=== PATIENT | male | born 1950 | race African-American/Black ===

== ENCOUNTER 2023-01-18 07:24 | Emergency (ER) | payer MEDICARE ==
[~2023-01-18] VITALS: Ht 188 cm; Wt 99.8 kg
[2023-01-18 07:33] VITALS: BP 146/67
[2023-01-18 08:27] LABS: Influenza A, PCR NEGATIVE (NEGATIVE); Influenza B, PCR NEGATIVE (NEGATIVE); Resp Syncytial Virus, PCR NEGATIVE (NEGATIVE)
[2023-01-18 08:30] LABS: SARS-Cov-2 (COVID-19) PCR, MMC POSITIVE (NEGATIVE)
[2023-01-18] MEDS ORDERED: PAXLOVID 150-11 EACH PO ×2 (09:02→09:04)
== END 2023-01-18 09:17 | disposition home or self-care (01) ==
LOC: ER 07:24
PROVIDERS: Emergency Medicine
DX: U07.1 COVID-19 (principal)
CPT/HCPCS: 0241U; 99283